=== PATIENT | male | born 1955 | race Caucasian/White ===

== ENCOUNTER 2023-07-08 14:42 | Emergency (ER) | payer OTHER, BC, SELFPAY ==
[2023-07-08 14:47] VITALS: BP 121/85
--- NOTE | 2023-07-08 15:03 | ED.GENMED ---
History of Present Illness
<Nakia Rutledge PA-C - Last Filed: 07/08/23 17:43>
General
Chief Complaint: Skin Surface Trauma
Source: patient
Exam Limitations: none
Time Seen by Provider: 07/08/23 14:54
Nursing documentation reviewed up to this point in time: agreed with
Travel History
Have you had any contact with someone who has COVID-19?: No
Do you have any symptoms of coronavirus? Fever > 100 degrees, chills, cough, shortness of breath, sore throat, loss of taste or smell, muscle aches, or headache?: No
History of Present Illness
History of Present Illness:
This is a 67-year-old male with past medical history of hypertension, hyperlipidemia presenting to emergency department today with a crush injury to his right third finger. 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
printing paper machine clamp when he was lifting it and got his finger trapped under the wheel. He states that he currently has numbness in the finger and has a lot of pain with movement. He did not sustain any other injury. Finger was extended
when the crush injury occurred.
Past History
<Nakia Rutledge PA-C - Last Filed: 07/08/23 17:43>
Past History
ED Past Medical History: None
ED Past Surgical History: None
Social History
Tobacco: Non-smoker
Alcohol: None
Drug: None
Personal: Single
Living: alone
Employment: Employed
Review of Systems
<Nakia Rutledge PA-C - Last Filed: 07/08/23 17:43>
Review of Systems
All Other Systems: ROS reviewed and negative except as documented in HPI and ROS
Phy Exam
<Nakia Rutledge PA-C - Last Filed: 07/08/23 17:43>
Physical Exam
Physical Exam:
General: Patient is well-appearing and in no acute distress
Skin: There is a 0.5 x 0.5 cm non-bleeding abrasion located at the lateral aspect of the right 3rd finger. There is a subungual hematoma at the right 3rd finger.
Pulm: normal respiratory effort
Musculoskeletal: Patient has full range of motion of right 3rd pip, dip, and MCP joints. There is significant tenderness to palpation of the right 3rd nail bed and finger. Sensation fully intact.
Course
<Nakia Rutledge PA-C - Last Filed: 07/08/23 17:43>
Orders/Labs/Results
Orders:
Orders
07/08/23 14:49
Finger(s)/Thumb 2 View Rt [CR Finger(s)/thumb Min 2 Vw Rt] Urgent
Comment: finger got caught in chain
Reason For Exam: crushing injury to middle finger while at work
Indicate Which Finger:: Middle Finger
07/08/23 17:01
Cephalexin Monohydrate [Keflex] 500 mg PO NOW STA
Vital Signs
Initial and Last Documented VS:
Initial Vital Signs
Temp Pulse Resp BP Pulse Ox
98.1 F 54 16 121/85 98
07/08/23 14:47 07/08/23 14:47 07/08/23 14:47 07/08/23 14:47 07/08/23 14:47
Last Documented Vital Signs
Temp Pulse Resp BP Pulse Ox
98.1 F 54 16 121/85 98
07/08/23 14:47 07/08/23 14:47 07/08/23 14:47 07/08/23 14:47 07/08/23 14:47
<Jacquie Luis MD - Last Filed: 07/08/23 17:07>
Orders/Labs/Results
Orders:
Orders
07/08/23 14:49
Finger(s)/Thumb 2 View Rt [CR Finger(s)/thumb Min 2 Vw Rt] Urgent
Comment: finger got caught in chain
Reason For Exam: crushing injury to middle finger while at work
Indicate Which Finger:: Middle Finger
07/08/23 17:01
Cephalexin Monohydrate [Keflex] 500 mg PO NOW STA
Vital Signs
Initial and Last Documented VS:
Initial Vital Signs
Temp Pulse Resp BP Pulse Ox
98.1 F 54 16 121/85 98
07/08/23 14:47 07/08/23 14:47 07/08/23 14:47 07/08/23 14:47 07/08/23 14:47
Last Documented Vital Signs
Temp Pulse Resp BP Pulse Ox
98.1 F 54 16 121/85 98
07/08/23 14:47 07/08/23 14:47 07/08/23 14:47 07/08/23 14:47 07/08/23 14:47
Procedures
<RUTH López Last Filed: 07/08/23 17:43>
Nail Trepanation/Felon
Method of Drainage: nail cauterized (patient's hematoma was drained with electrocautery, patient tolerated procedure well)
Sterile dressing applied: Yes
Finger splint applied: No
<RUTH López Last Filed: 07/08/23 17:43>
MDM/Problems Addressed
Differential Diagnosis Includes:
differentials include phalangeal fracture, simple finger abrasion/subungual hematoma, extensor tendon injury, flexor tender injury
MDM/Problems Addressed:
finger crush injury
Chronic conditions affecting care: HTN
Acute Exacerbation and/or Progression of Chronic Illness:
n/a
<RUTH López Last Filed: 07/08/23 17:43>
*Radiology
Radiology exam reviewed: preliminary read by ED provider ( no fracture )
*Pulse Oximetry
Patient hypoxic: no
*Critical Care Note
Total Time (30-74mins, 75-104mins- exclusive of procedures): Not Applicable
Data Reviewed
Review of Other/Old Records Reveals: Records (reviewed previous record, patient seen here two years ago for acute respiratory failure as a result of COVID)
Prescriptions/Medications Considered But Not Given:
n/a
Further Testing Considered But Not Given:
n/a
<Nakia Rutledge PA-C - Last Filed: 07/08/23 17:43>
Patient Management
Escalation/DeEscalation of care consider admission/obs:
This is a 67-year-old male with past medical history of hypertension, hyperlipidemia presenting today with a crush injury to the right 3rd finger. He has full range of motion of his right third DIP, PIP, and MCP joints. He has exquisite tenderness
palpation. There is a subungual hematoma. His subungual hematoma was drained with cautery which provided the patient with relief. Given the extent of his injury, possible contamination of his wound, and the need for electrocautery, we we will
start prophylactic antibiotics with cephalexin. We vies him to keep the wound clean and change dressings daily. Advised him to refrain from work and heavy lifting. Will have him follow-up with his primary care provider and have him return should
he have worsening of symptoms
ED Attending Note
<Nakia Rutledge PA-C - Last Filed: 07/08/23 17:43>
-
Portions of this chart may have been created with voice recognition software.� Occasional wrong word or��sound alike� substitutions may have occurred due to the inherent limitations of voice recognition software.
<Jacquie Luis MD - Last Filed: 07/08/23 17:07>
ED Attending Note
Patient seen and examined by attending physician: Yes
I performed the substantive portion of visit, reviewed & personally made and approve the management plan that is documented in note by myself or NAVEED.: Yes
ED Attending Note:
67 yr old with injury from machine, now with subungal hematoma at L third finger with superficial laceration noted extending laterally, no active bleed. FROM, no bony ttp. There wound is not amenable to sutures given location and superficail
nature/skin abrasion. We cleaned here, will encourage him to keep wound clean, po abx, wound check, etc.
Discharge Plan
Departure
Patient Disposition: Home (Routine Discharge)
Date of Disposition: 07/08/23
Time of Disposition: 17:02
Patient with high blood pressure during this ER visit?: Yes
Condition: Good
Discharge Problem:
Subungual hematoma, Finger injury
Instructions: Crush Injury (DC), Bruising Under the Nail
Prescriptions:
New
cephalexin 500 mg capsule
500 mg PO Q6H 7 Days Qty: 28 0RF
No Action
Alpha Lipoic Acid
1 tab PO DAILY
aspirin 81 MG tablet,chewable
81 mg PO DAILY
docosahexaenoic acid-epa 1 CAP capsule
1 cap PO DAILY
coenzyme Q10 [Co Q-10] 200 MG capsule
200 mg PO DAILY
psyllium husk (aspartame) [Metamucil Fiber Singles] 1 PACKET powder in packet
1 packet PO HS
multivitamin with folic acid [Tab-A-Rosas] 1 TABLET tablet
1 tab PO DAILY
Calcium
1 tab PO DAILY
Collagen
1 tab PO DAILY
Cranberry
1 tab PO DAILY
Friendly Tamika
1 tab PO HS
L-Carnitine
1 tab PO DAILY
Magnesium
1 tab PO DAILY
Melatonin
1 dose PO HS
Vitamin C:
1 tab PO DAILY
Vitamin D3 (cholecalciferol):
1 tab PO DAILY
Whey Protein
1 tab PO DAILY
Zinc
1 tab PO DAILY
nystatin 5 ML suspension
5 ml PO QID 14 Days Qty: 300 0RF
amlodipine 5 MG tablet
5 mg PO DAILY Qty: 30 0RF
Referrals:
Alec Patel MD [Family Provider] -
Stand Alone Forms: Return to Work
Activity Restrictions/Additional Instructions:
We have sent an antibiotic called cephalexin to your pharmacy. Please take 1 tablet every 6 hours for 7 days.
You can expect blood to continue to drain from your nail. Please keep the area clean. You can clean the area with mild soap and water and dress the wound daily with nonadherent pads and wraps which he can burr [id number] [id number]. Please refrain
from work for the next few days.
Please return to the emergency department should you experience worsening symptoms, new injuries, chest pain, shortness of breath, or other concerning symptoms.
Interventions
Interventions:
*Risk Screen - Suicide Last Done: 07/08/23 15:49
*General Assessment Last Done: 07/08/23 15:49
*Neglect/Abuse Screening Last Done: 07/08/23 15:49
ED- Fall Risk Assessment Last Done: 07/08/23 15:49
*ED COVID-19 Vaccine History Last Done: 07/08/23 14:47
ED-Skin Assessment Last Done: 07/08/23 15:05
[2023-07-08] MEDS: KEFLEX 500 MG PO (17:17)
[2023-07-08 17:20] VITALS: BP 138/80
--- NOTE | 2023-07-08 17:38 | EDRN ---
Reviewed discharge instructions with patient. Verbalized understanding. Ambulated with steady gait to the lobby.
[2023-07-08 17:39] VITALS: BP 138/80
== END 2023-07-08 17:35 | disposition home or self-care (01) ==
LOC: EMR 14:42
PROVIDERS: EMERGENCY PHYSICIAN Emergency Medicine; FAMILY PHYSICIAN Family Medicine
DX: S60.131A Contusion of right middle finger with damage to nail, initial encounter (principal); S60.412A Abrasion of right middle finger, initial encounter; W31.89XA Contact with other specified machinery, initial encounter; Y93.89 Activity, other specified; Y92.89 Other specified places as the place of occurrence of the external cause; Y99.0 Civilian activity done for income or pay; I10 Essential (primary) hypertension; E78.5 Hyperlipidemia, unspecified
CPT/HCPCS: 99283; 11740; 73140

== ENCOUNTER → 2023-10-18 14:59 | Outpatient (REF) | payer BC, SELFPAY | LOC: RAD 14:59 | PROVIDERS: ATTENDING PHYSICIAN Physician Assistant Medical | DX: R10.12 Left upper quadrant pain (principal); R06.00 Dyspnea, unspecified | CPT/HCPCS: 71046; 76700 ==

== ENCOUNTER → 2024-07-13 12:39 | Outpatient (REF) | payer MEDICARE, OTHER, SELFPAY | LOC: HWRAD 12:39 | PROVIDERS: ATTENDING PHYSICIAN Nurse Practitioner Adult Health; FAMILY PHYSICIAN Family Medicine | DX: J84.9 Interstitial pulmonary disease, unspecified (principal) | CPT/HCPCS: 71250 ==

== ENCOUNTER → 2024-07-20 12:51 | Outpatient (REF) | payer MEDICARE, OTHER, SELFPAY | LOC: HWRCS 12:51 | PROVIDERS: ATTENDING PHYSICIAN Nurse Practitioner Adult Health; FAMILY PHYSICIAN Family Medicine | DX: J84.9 Interstitial pulmonary disease, unspecified (principal) | CPT/HCPCS: 93306 ==

== ENCOUNTER → 2024-07-27 13:08 | Outpatient (REF) | payer MEDICARE, SELFPAY | LOC: RAD 13:08 | PROVIDERS: ATTENDING PHYSICIAN Family Medicine | DX: I73.9 Peripheral vascular disease, unspecified (principal) | CPT/HCPCS: 93925 ==

== ENCOUNTER → 2025-01-04 15:23 | Outpatient (REF) | payer MEDICARE, OTHER, SELFPAY | LOC: RAD 15:23 | PROVIDERS: ATTENDING PHYSICIAN Family Medicine | DX: I73.9 Peripheral vascular disease, unspecified (principal) | CPT/HCPCS: 93922 ==

== ENCOUNTER → 2025-05-04 13:13 | Outpatient (REF) | payer MEDICARE, OTHER, SELFPAY | LOC: HWRAD 13:13 | PROVIDERS: ATTENDING PHYSICIAN Family Medicine | DX: M54.16 Radiculopathy, lumbar region (principal) | CPT/HCPCS: 72110 ==